=== PATIENT | female | born 1950 | race African-American/Black ===

== ENCOUNTER 2022-08-21 23:40 | Inpatient (IN) | payer MEDICARE, BC ==
[~2022-08-21] VITALS: Ht 160 cm; Wt 76.7 kg
[2022-08-22] VITALS (10 sets, daily range): BP systolic 126–157; BP diastolic 53–83
[2022-08-22] MEDS ORDERED: BENZONATATE 100 MG CAP PO PRN (00:45)
[2022-08-22] MEDS ORDERED: ONDANSETRON HCL INJ 2MG/ML 2ML 2 MG/ML VIAL IV PRN (00:45)
[2022-08-22] MEDS ORDERED: ACETAMINOPHEN 325 MG TAB PO PRN ×2 (00:45→02:30)
[2022-08-22] MEDS ORDERED: ALBUTEROL/IPRATROPIUM 3 ML NEB NEB PRN (00:45)
[2022-08-22] MEDS ORDERED: COREG12.5 MG PO (01:41)
[2022-08-22] MEDS ORDERED: EDARBYCLOR 40-1 EAC1 PO (01:46)
[2022-08-22 06:46] LABS: BASOPHILS % 0.1 % (0.0-1.0); HEMATOCRIT 36.7 % (34.2-44.1); HEMOGLOBIN 12.2 g/dL (12.0-16.0); LYMPHOCYTES # (AUTO) 1.1 (1.0-3.2); LYMPHOCYTES % 7.5 % (18.0-39.1); MEAN CORPUSCULAR HEMOGLOBIN 26.5 pg (28-32); MEAN CORPUSCULAR HGB CONC 33.2 g/dL (31-35); MEAN CORPUSCULAR VOLUME 79.6 fL (81-99); MONOCYTES # (AUTO) 0.5 (0.2-0.8); NEUTROPHILS # (AUTO) 13.3 (2.1-6.9); NEUTROPHILS % 88.7 % (38.7-80.0); PLATELET COUNT 330 x10e3/uL (140-360); RED BLOOD COUNT 4.61 x10e6/uL (3.6-5.1); RED CELL DISTRIBUTION WIDTH 12.4 % (11.7-14.4)
[2022-08-22 07:16] LABS: ANION GAP 15.1 mmol/L (8-16); CALCIUM 9.9 mg/dL (8.4-10.2); CREATININE, SERUM 0.85 mg/dL (0.57-1.11); POTASSIUM 3.1 mmol/L (3.5-5.1)
[2022-08-22] MEDS ORDERED: PREMARIN0.625 MG PO (07:47)
[2022-08-22] MEDS ORDERED: POTASSIUM CHLORIDE 10MEQ EA PO ONE (09:30)
[2022-08-22] MEDS ORDERED: SODIUM CHLORIDE 0.9% 250ML 250 ML ONE (10:25)
[2022-08-22] MEDS ORDERED: HYDRALAZINE HCL 20 MG/ML VIAL IV PRN (11:30)
[2022-08-22] MEDS: CARVEDILOL 12.5 MG TAB PO SCH ×2 (11:30→17:00)
[2022-08-22] MEDS: METHYLPREDNISOLONE SOD SUCC 40 MG/ML VIAL 1ML IV SCH ×2 (11:44→20:36)
[2022-08-22] MEDS: GUAIFENESIN 600 MG TAB PO SCH ×2 (11:44→16:53)
[2022-08-22] MEDS: ENOXAPARIN SOD INJ 40 MG/0.4 ML SYR SC SCH (16:53)
[2022-08-23] VITALS (9 sets, daily range): BP systolic 127–152; BP diastolic 60–77
[2022-08-23 07:00] LABS: BASOPHILS # (AUTO) 0.1 (0.0-0.1); BASOPHILS % 0.2 % (0.0-1.0); HEMATOCRIT 37.7 % (34.2-44.1); HEMOGLOBIN 12.3 g/dL (12.0-16.0); LYMPHOCYTES # (AUTO) 1.3 (1.0-3.2); LYMPHOCYTES % 5.5 % (18.0-39.1); MEAN CORPUSCULAR HEMOGLOBIN 26.5 pg (28-32); MEAN CORPUSCULAR HGB CONC 32.6 g/dL (31-35); MEAN CORPUSCULAR VOLUME 81.3 fL (81-99); MONOCYTES # (AUTO) 0.9 (0.2-0.8); MONOCYTES % 3.9 % (4.4-11.3); NEUTROPHILS # (AUTO) 20.3 (2.1-6.9); NEUTROPHILS % 89.3 % (38.7-80.0); PLATELET COUNT 276 x10e3/uL (140-360); RED BLOOD COUNT 4.64 x10e6/uL (3.6-5.1); RED CELL DISTRIBUTION WIDTH 12.8 % (11.7-14.4)
[2022-08-23 07:18] LABS: ANION GAP 14.6 mmol/L (8-16); CALCIUM 9.2 mg/dL (8.4-10.2); CREATININE, SERUM 0.78 mg/dL (0.57-1.11); POTASSIUM 3.6 mmol/L (3.5-5.1)
[2022-08-23] MEDS: GUAIFENESIN 600 MG TAB PO SCH ×2 (08:09→16:38)
[2022-08-23] MEDS: METHYLPREDNISOLONE SOD SUCC 40 MG/ML VIAL 1ML IV SCH (08:09)
[2022-08-23] MEDS: CARVEDILOL 12.5 MG TAB PO SCH ×2 (08:28→16:38)
[2022-08-23 08:36] LABS: LYMPHOCYTES % (MANUAL) 7 % (19-48); MONOCYTES % (MANUAL) 5 % (3.4-9.0); NEUTROPHILS % (MANUAL) 88 % (40-74); PLATELET ESTIMATE ADEQUATE; PLATELET MORPHOLOGY COMMENT NORMAL; RBC MORPHOLOGY COMMENT NORMAL
[2022-08-23] MEDS ORDERED: MAGNESIUM HYDROXIDE 30 ML UDC PO PRN (09:30)
[2022-08-23] MEDS: SENNA-S TABLET PO SCH ×2 (10:14→16:38)
[2022-08-23] MEDS: ALBUTEROL/IPRATROPIUM 3 ML NEB NEB SCH ×2 (12:50→19:10)
[2022-08-23] MEDS: ENOXAPARIN SOD INJ 40 MG/0.4 ML SYR SC SCH (16:37)
[2022-08-23] MEDS ORDERED: METHYLPREDNISOLONE SOD SUCC 40 MG/ML VIAL 1ML IV SCH (21:00)
[2022-08-24] VITALS (8 sets, daily range): BP systolic 127–168; BP diastolic 61–83
[2022-08-24] MEDS: ALBUTEROL/IPRATROPIUM 3 ML NEB NEB SCH ×4 (01:15→19:15)
[2022-08-24 05:39] LABS: BASOPHILS % 0.2 % (0.0-1.0); HEMATOCRIT 34.2 % (34.2-44.1); HEMOGLOBIN 11.4 g/dL (12.0-16.0); LYMPHOCYTES # (AUTO) 2.1 (1.0-3.2); LYMPHOCYTES % 10.4 % (18.0-39.1); MEAN CORPUSCULAR HEMOGLOBIN 26.8 pg (28-32); MEAN CORPUSCULAR HGB CONC 33.3 g/dL (31-35); MEAN CORPUSCULAR VOLUME 80.5 fL (81-99); NEUTROPHILS # (AUTO) 16.7 (2.1-6.9); NEUTROPHILS % 83.3 % (38.7-80.0); PLATELET COUNT 272 x10e3/uL (140-360); RED BLOOD COUNT 4.25 x10e6/uL (3.6-5.1); RED CELL DISTRIBUTION WIDTH 12.9 % (11.7-14.4)
[2022-08-24 06:07] LABS: ANION GAP 12.1 mmol/L (8-16); CALCIUM 9.4 mg/dL (8.4-10.2); CREATININE, SERUM 0.7 mg/dL (0.57-1.11); POTASSIUM 3.1 mmol/L (3.5-5.1)
[2022-08-24 07:38] LABS: LYMPHOCYTES % (MANUAL) 7 % (19-48); MONOCYTES % (MANUAL) 4 % (3.4-9.0); NEUTROPHILS % (MANUAL) 89 % (40-74); PLATELET ESTIMATE ADEQUATE; PLATELET MORPHOLOGY COMMENT FEW LARGE; RBC MORPHOLOGY COMMENT NORMAL
[2022-08-24] MEDS ORDERED: METHYLPREDNISOLONE SOD SUCC 40 MG/ML VIAL 1ML IV SCH (09:00)
[2022-08-24] MEDS: SENNA-S TABLET PO SCH ×2 (09:07→16:43)
[2022-08-24] MEDS: GUAIFENESIN 600 MG TAB PO SCH ×2 (09:07→16:43)
[2022-08-24] MEDS: CARVEDILOL 12.5 MG TAB PO SCH ×2 (09:08→16:44)
[2022-08-24] MEDS ORDERED: MAGNESIUM HYDROXIDE 30 ML UDC PO PRN (09:15)
[2022-08-24] MEDS ORDERED: BISACODYL 10 MG SUPP PR PRN (09:15)
[2022-08-24] MEDS ORDERED: MAGNESIUM HYDROXIDE 30 ML UDC PO ONE (10:00)
[2022-08-24] MEDS ORDERED: BISACODYL 10 MG SUPP PR ONE (10:00)
[2022-08-24] MEDS ORDERED: POTASSIUM CHLORIDE 20 MEQ TAB CR PO PRN (10:15)
[2022-08-24 14:25] LABS: CHOL/HDL RATIO 3.7 (3.0-3.6)
[2022-08-24] MEDS: ENOXAPARIN SOD INJ 40 MG/0.4 ML SYR SC SCH (16:42)
[2022-08-25] VITALS (9 sets, daily range): BP systolic 138–159; BP diastolic 67–74
[2022-08-25] MEDS: ALBUTEROL/IPRATROPIUM 3 ML NEB NEB SCH ×4 (01:20→20:00)
[2022-08-25 06:03] LABS: BASOPHILS % 0.1 % (0.0-1.0); EOSINOPHILS # (AUTO) 0.1 (0.0-0.4); EOSINOPHILS % 0.9 % (0.0-6.0); HEMATOCRIT 34.6 % (34.2-44.1); HEMOGLOBIN 11.3 g/dL (12.0-16.0); LYMPHOCYTES # (AUTO) 3.4 (1.0-3.2); LYMPHOCYTES % 37.8 % (18.0-39.1); MEAN CORPUSCULAR HEMOGLOBIN 26.6 pg (28-32); MEAN CORPUSCULAR HGB CONC 32.7 g/dL (31-35); MEAN CORPUSCULAR VOLUME 81.4 fL (81-99); MONOCYTES # (AUTO) 0.8 (0.2-0.8); MONOCYTES % 9.1 % (4.4-11.3); NEUTROPHILS # (AUTO) 4.6 (2.1-6.9); NEUTROPHILS % 51.5 % (38.7-80.0); PLATELET COUNT 250 x10e3/uL (140-360); RED BLOOD COUNT 4.25 x10e6/uL (3.6-5.1); RED CELL DISTRIBUTION WIDTH 12.9 % (11.7-14.4)
[2022-08-25 06:38] LABS: ANION GAP 10.8 mmol/L (8-16); CALCIUM 8.5 mg/dL (8.4-10.2); CREATININE, SERUM 0.73 mg/dL (0.57-1.11); POTASSIUM 3.8 mmol/L (3.5-5.1)
[2022-08-25] MEDS: SENNA-S TABLET PO SCH ×2 (10:21→17:00)
[2022-08-25] MEDS: ASPIRIN 81 MG ENTERIC COATED PO SCH (10:21)
[2022-08-25] MEDS: CARVEDILOL 12.5 MG TAB PO SCH ×2 (10:21→17:56)
[2022-08-25] MEDS: GUAIFENESIN 600 MG TAB PO SCH ×2 (10:21→17:56)
[2022-08-25] MEDS ORDERED: ONDANSETRON HCL 4 MG ORAL DISINTEGRATING TAB PO PRN (11:00)
[2022-08-25] MEDS: ENOXAPARIN SOD INJ 40 MG/0.4 ML SYR SC SCH (17:56)
[2022-08-26] VITALS (8 sets, daily range): BP systolic 120–147; BP diastolic 67–77
[2022-08-26] MEDS: ALBUTEROL/IPRATROPIUM 3 ML NEB NEB SCH ×3 (02:45→19:20)
[2022-08-26] MEDS: GUAIFENESIN 600 MG TAB PO SCH ×2 (09:05→18:03)
[2022-08-26] MEDS: ASPIRIN 81 MG ENTERIC COATED PO SCH (09:06)
[2022-08-26] MEDS: CARVEDILOL 12.5 MG TAB PO SCH ×2 (09:06→18:03)
[2022-08-26] MEDS: SENNA-S TABLET PO SCH ×2 (09:08→18:06)
[2022-08-26] MEDS: ENOXAPARIN SOD INJ 40 MG/0.4 ML SYR SC SCH (18:03)
[2022-08-26] MEDS ORDERED: ATORVASTATIN 40 MG TAB PO SCH (21:00)
[2022-08-27] VITALS: BP 132/69
[2022-08-27] MEDS: ALBUTEROL/IPRATROPIUM 3 ML NEB NEB SCH ×2 (02:40→07:11)
[2022-08-27 04:00] VITALS: BP 134/69
[2022-08-27 08:18] VITALS: BP 144/78
[2022-08-27 09:00] VITALS: BP 144/78
[2022-08-27] MEDS: SENNA-S TABLET PO SCH (09:50)
[2022-08-27] MEDS: GUAIFENESIN 600 MG TAB PO SCH (09:50)
[2022-08-27] MEDS: ASPIRIN 81 MG ENTERIC COATED PO SCH (09:50)
[2022-08-27] MEDS: CARVEDILOL 12.5 MG TAB PO SCH (09:50)
[2022-08-27 12:14] VITALS: BP 153/67
== END 2022-08-27 14:19 | disposition home or self-care (01) | DRG 177 ==
LOC: MED/SURG3 23:41
PROVIDERS: ADMIT Internal Medicine; ATTEND Internal Medicine
PROC: 8E0ZXY6 Isolation (ICD-10-PCS; principal; 2022-08-21)
DX: U07.1 COVID-19 (principal); I21.4 Non-ST elevation (NSTEMI) myocardial infarction; J12.82 Pneumonia due to coronavirus disease 2019; J15.9 Unspecified bacterial pneumonia; J96.00 Acute respiratory failure, unspecified whether with hypoxia or hypercapnia; I10 Essential (primary) hypertension; I16.0 Hypertensive urgency; Z82.49 Family history of ischemic heart disease and other diseases of the circulatory system; E87.6 Hypokalemia; R77.8 Other specified abnormalities of plasma proteins; J40 Bronchitis, not specified as acute or chronic; Z88.0 Allergy status to penicillin; I25.10 Atherosclerotic heart disease of native coronary artery without angina pectoris; K59.00 Constipation, unspecified; E87.8 Other disorders of electrolyte and fluid balance, not elsewhere classified
CPT/HCPCS: 36415; 71045; 71046; 71250; 80048; 80061; 82948; 84484; 85025; 87070; 87205; 94640; 94799; 99252; J0456; J0696; J1650; J2920; J7050